=== PATIENT | male | born 1985 ===

== ENCOUNTER 2023-08-04 11:15 | Emergency (ER) | payer BC ==
[2023-08-04 12:45] LABS: BILIRUBIN,URINE NEGATIVE (NEGATIVE); GLUCOSE,URINE NORMAL (NORMAL); KETONES,URINE NEGATIVE (NEGATIVE); LEUKOCYTE ESTERASE,URINE NEGATIVE (NEGATIVE); NITRITE,URINE NEGATIVE (NEGATIVE); OCCULT BLOOD,URINE NEGATIVE (NEGATIVE); PROTEIN,URINE NEGATIVE (NEGATIVE); UROBILINOGEN,URINE NORMAL (NEGATIVE)
[2023-08-04] MEDS: Ondansetron 4 MG/2 ML SDV IVPUSH ONE ×2 (12:47→15:27)
[2023-08-04] MEDS: Ketorolac 30 MG/ML SDV IVPUSH ONE (12:48)
[2023-08-04] MEDS: diphenhydrAMINE 50 MG/ML SDV IVPUSH ONE (12:48)
[2023-08-04 12:49] LABS: BLOOD UREA NITROGEN,BUN 10 mg/dL (7-18); CALCIUM 9.5 mg/dL (8.6-10.2); CARBON DIOXIDE,CO2 26 mmol/L (21-32); CHLORIDE,CL 101 mmol/L (100-110); EST CRCL DRUG DOSING (CG) 101.14 mL/min; ESTIMATED GFR 99 mL/min (>60); GLUCOSE RANDOM 141 mg/dL (80-116); HEMATOCRIT 49.5 % (38.3-50.1); HEMOGLOBIN 16.8 g/dL (12.9-17.7); MEAN CORPUSCULAR HEMOGLOBIN 32.5 pg (27.0-33.3); MEAN CORPUSCULAR HGB CONC 33.9 g/dL (28.7-35.3); MEAN CORPUSCULAR VOLUME 95.9 fL (80.8-98.7); MEAN PLATELET VOLUME 9.4 fL (6.7-11.0); PLATELET COUNT,PLT 101 x10(3)uL (117-477); POTASSIUM,K 3.8 mmol/L (3.5-5.3); RED BLOOD CELL COUNT 5.16 x10(6)uL (3.90-5.90); RED CELL DISTRIBUTION WIDTH 13.4 % (12.4-15.0); SODIUM,NA 140 mmol/L (135-145); WHITE BLOOD CELL COUNT,WBC 19.3 x10-3/uL (3.2-10.1)
[2023-08-04] MEDS: Sodium Chloride 0.9% 1,000 ML IV ONE ×2 (12:49→13:56)
[2023-08-04 12:51] LABS: APPEARANCE,URINE CLEAR (CLEAR); BACTERIA,URINE FEW (NS); COLOR,URINE YELLOW (YELLOW); SQUAMOUS EPITHELIAL CELLS,UR OCCASIONAL (NS,R,O); WBC,URINE 0-5 (0-5)
[2023-08-04 13:01] LABS: A/G RATIO 1.1; ALBUMIN 4.5 g/dL (3.5-5.2); ALKALINE PHOSPHATASE 79 IU/L (56-112); ASPARTATE AMNIOTRANSFERASE,AST 112 IU/L (5-25); BILIRUBIN TOTAL 0.7 mg/dL (0.1-1.3); PROTEIN TOTAL,TP 8.5 g/dL (6.0-8.0)
[2023-08-04] MEDS: Iopamidol 755 Mg/ML 200 ML Bottle IV ONE (13:13)
[2023-08-04 13:20] LABS: ALANINE AMINOTRANSFERASE,ALT 211 U/L (12-36)
[2023-08-04 13:31] LABS: LYMPHOCYTES PERCENT MAN 6 % (13-37); MONOCYTES PERCENT MAN 6 % (4-12); SEG NEUTROPHILS PERCENT MAN 88 % (46-82)
[2023-08-04] MEDS: Piperacillin/Tazobactam 3.375 GM in Sodium Chloride 0.9% 50 ML IV SCH (14:48)
[2023-08-04] MEDS: Morphine 4 MG/ML VIAL IVPUSH ONE (15:27)
== END 2023-08-04 16:05 ==
LOC: FB.ED 11:15
DX: K35.80 Unspecified acute appendicitis (principal); E87.20 Acidosis, unspecified; K76.0 Fatty (change of) liver, not elsewhere classified; D72.829 Elevated white blood cell count, unspecified; R74.01 Elevation of levels of liver transaminase levels
CPT/HCPCS: 74177; 80053; 81001; 83605; 83690; 84484; 85025; 86140; 93005; 96361; 96365; 96375; 96376; 99285; J1200; J1885; J2270; J2405; J2543; J3490; J7030; Q9967